=== PATIENT | female | born 2000 | race Caucasian/White ===

== ENCOUNTER 2020-08-12 15:13 | Emergency (ER) | payer SELFPAY ==
[~2020-08-12] VITALS: Ht 170.2 cm; Wt 63.5 kg
[2020-08-12 15:30] VITALS: BP 133/85
--- NOTE | 2020-08-12 15:36 | NUR ---
Pt ambulated to ER bed 6 with a steady gait.
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
--- NOTE | 2020-08-12 15:51 | NUR ---
Dr. Smith at pt bedside for further evaluation.
[2020-08-12] MEDS ORDERED: IBUP-2213 PO (16:04)
[2020-08-12] MEDS ORDERED: ACETAMINOPHEN EXTRA STRENGTH 500 MG TAB PO ONE (16:05)
[2020-08-12] MEDS ORDERED: IBUPROFEN 600 MG TAB PO ONE (16:05)
[2020-08-12 16:13] VITALS: BP 133/85
--- NOTE | 2020-08-12 16:13 | NUR ---
Patient discharged with v/s stable. Written and verbal after care instructions given and explained. Patient alert, oriented and verbalized understanding of instructions. Ambulatory with steady gait. All questions addressed prior to discharge. ID band removed. Patient advised to follow up with PMD. Rx of IBUPROFEN 600MG PO Q8H PRN PAIN given. Patient educated on indication of medication including possible reaction and side effects. Opportunity to ask questions provided and answered.
== END 2020-08-12 16:13 | disposition home or self-care (01) ==
LOC: MED 15:13
DX: M54.2 Cervicalgia (principal); J45.909 Unspecified asthma, uncomplicated; Z79.1 Long term (current) use of non-steroidal anti-inflammatories (NSAID); V89.2XXA Person injured in unspecified motor-vehicle accident, traffic, initial encounter; Y93.89 Activity, other specified; Y92.410 Unspecified street and highway as the place of occurrence of the external cause; Y99.8 Other external cause status
CPT/HCPCS: 99282

== ENCOUNTER 2021-09-22 06:55 | Emergency (ER) | payer SELFPAY ==
[~2021-09-22] VITALS: Ht 170.2 cm; Wt 83.9 kg
[~2021-09-22 06:55] MED LIST: IBUP-2213 PO
[2021-09-22 06:59] VITALS: BP 133/71
--- NOTE | 2021-09-22 07:00 | NUR ---
TO BED AMBULATORY
[2021-09-22] MEDS ORDERED: ACETAMINOPHEN 325 MG TAB PO ONE (07:15)
[2021-09-22] MEDS ORDERED: IBUPROFEN 400 MG TAB PO ONE (07:15)
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
--- NOTE | 2021-09-22 07:29 | NUR ---
PT TAKEN TO XR VIA WC
[2021-09-22] MEDS ORDERED: NAPR-54 PO (08:38)
[2021-09-22] MEDS ORDERED: CYCL-711 PO (08:38)
[2021-09-22 08:48] VITALS: BP 124/78
--- NOTE | 2021-09-22 08:49 | NUR ---
Patient discharged with v/s stable. Written and verbal after care instructions given and explained. Patient alert, oriented and verbalized understanding of instructions. Ambulatory with steady gait. All questions addressed prior to discharge. ID band removed. Patient advised to follow up with PMD. Rx of FLEXERIL, NAPROSYN given. Patient educated on indication of medication including possible reaction and side effects. Opportunity to ask questions provided and answered.
== END 2021-09-22 08:49 | disposition home or self-care (01) ==
LOC: MED 06:55
DX: S13.9XXA Sprain of joints and ligaments of unspecified parts of neck, initial encounter (principal); S23.9XXA Sprain of unspecified parts of thorax, initial encounter; J45.909 Unspecified asthma, uncomplicated; Z79.899 Other long term (current) drug therapy; V89.2XXA Person injured in unspecified motor-vehicle accident, traffic, initial encounter; Y93.89 Activity, other specified; Y92.89 Other specified places as the place of occurrence of the external cause; Y99.8 Other external cause status
CPT/HCPCS: 72040; 72072; 99284

== ENCOUNTER 2022-08-10 03:00 | Emergency (ER) | payer MEDICAID, OTHER ==
[~2022-08-10] VITALS: Ht 170.2 cm; Wt 80.3 kg
[~2022-08-10 03:00] MED LIST changes: +CYCL-711 PO; +NAPR-54 PO
[2022-08-10 03:07] VITALS: BP 137/85
--- NOTE | 2022-08-10 03:11 | NUR ---
Patient taken to bed 6.
--- NOTE | 2022-08-10 03:56 | NUR ---
X-Ray at bedside.
--- NOTE | 2022-08-10 04:02 | NUR ---
Dr. Ortega examining patient.
[2022-08-10] MEDS ORDERED: ALBU0.0912 INH (04:17)
[2022-08-10] MEDS ORDERED: PRED20TA5 PO (04:17)
[2022-08-10] MEDS ORDERED: AZIT250T4 PO (04:17)
[2022-08-10 04:30] VITALS: BP 137/85
--- NOTE | 2022-08-10 04:30 | NUR ---
Patient discharged with v/s stable. Written and verbal after care instructions given and explained. Patient alert, oriented and verbalized understanding of instructions. Ambulatory with steady gait. All questions addressed prior to discharge. ID band removed. Patient advised to follow up with PMD. Rx of NILO DE PAZ given. Patient educated on indication of medication including possible reaction and side effects. Opportunity to ask questions provided and answered.
== END 2022-08-10 04:30 | disposition home or self-care (01) ==
LOC: MED 03:00
DX: J20.9 Acute bronchitis, unspecified (principal); J45.909 Unspecified asthma, uncomplicated; F17.210 Nicotine dependence, cigarettes, uncomplicated; Z79.899 Other long term (current) drug therapy; Z79.1 Long term (current) use of non-steroidal anti-inflammatories (NSAID)
CPT/HCPCS: 71045; 99283; Q0092

== ENCOUNTER 2023-02-23 08:10 | Emergency (ER) | payer MEDICAID ==
[~2023-02-23] VITALS: Ht 172.7 cm; Wt 86.2 kg
[~2023-02-23 08:10] MED LIST changes: +ALBU0.0912 INH; +AZIT250T4 PO; +PRED20TA5 PO
[2023-02-23 08:13] VITALS: BP 139/88; PULSE 113; RESP 22; TEMP 96.1; O2SAT 95
[2023-02-23] MEDS ORDERED: ALBUTEROL SULFATE/IPRATROPIU 3 ML SOL IH ONE (08:25)
[2023-02-23] MEDS ORDERED: predniSONE 20 MG TAB PO ONE (08:25)
[2023-02-23] MEDS ORDERED: ALBUTEROL 0.083% 2.5 MG/3 ML NEBU INH ONE (08:25)
[2023-02-23 08:39] VITALS: PULSE 116; RESP 16; O2SAT 94
[2023-02-23] MEDS ORDERED: PRED20TA5 PO (09:04)
[2023-02-23] MEDS ORDERED: ALBU0.0912 INH (09:04)
[2023-02-23 09:21] VITALS: BP 139/88; PULSE 116; RESP 16; TEMP 97.3; O2SAT 94
== END 2023-02-23 09:21 | disposition home or self-care (01) ==
LOC: MED 08:10
DX: J45.901 Unspecified asthma with (acute) exacerbation (principal); F17.200 Nicotine dependence, unspecified, uncomplicated; Z79.899 Other long term (current) drug therapy; Z79.2 Long term (current) use of antibiotics; Z79.1 Long term (current) use of non-steroidal anti-inflammatories (NSAID)
CPT/HCPCS: 94640; 99283; J7512; J7613

== ENCOUNTER 2023-08-30 05:20 | Emergency (ER) | payer MEDICAID, OTHER ==
[~2023-08-30] VITALS: Ht 175.3 cm; Wt 86.2 kg
[~2023-08-30 05:20] MED LIST changes: +NAPR-337 PO; -NAPR-54 PO
[2023-08-30 05:31] VITALS: BP 122/70; PULSE 90; RESP 0; RESP 18; TEMP 98.1; O2SAT 98
[2023-08-30 06:12] VITALS: BP 122/70; PULSE 90; RESP 0; TEMP 98.1; O2SAT 98
[2023-08-30 06:43] LABS: FLU B ANTIGEN NEGATIVE (NEGATIVE)
[2023-08-30 06:44] LABS: FLU A ANTIGEN POSITIVE (NEGATIVE)
[2023-08-30] MEDS ORDERED: TAM75 PO (07:00)
[2023-08-30] MEDS ORDERED: IBUP-2213 PO (07:00)
== END 2023-08-30 07:19 | disposition home or self-care (01) ==
LOC: MED 05:20
DX: J10.1 Influenza due to other identified influenza virus with other respiratory manifestations (principal); Z20.822 Contact with and (suspected) exposure to COVID-19; R03.0 Elevated blood-pressure reading, without diagnosis of hypertension; J45.909 Unspecified asthma, uncomplicated; Z79.1 Long term (current) use of non-steroidal anti-inflammatories (NSAID); Z79.899 Other long term (current) drug therapy
CPT/HCPCS: 99283

== ENCOUNTER 2023-11-10 05:09 | Emergency (ER) | payer OTHER ==
[~2023-11-10] VITALS: Ht 170.2 cm; Wt 84.8 kg
[~2023-11-10 05:09] MED LIST changes: +TAM75 PO
[2023-11-10 05:10] VITALS: BP 118/74; PULSE 85; RESP 20; TEMP 97.6; O2SAT 99
[2023-11-10 05:19] VITALS: O2SAT 99
[2023-11-10 05:22] VITALS: BP 118/74; PULSE 85; RESP 20; TEMP 97.6; O2SAT 99
== END 2023-11-10 05:50 | disposition left against medical advice (07) ==
LOC: MED 05:09
DX: R21 Rash and other nonspecific skin eruption (principal); Z53.21 Procedure and treatment not carried out due to patient leaving prior to being seen by health care provider